=== PATIENT | female | born 1950 | race Caucasian/White ===

== ENCOUNTER 2017-01-09 18:10 | Emergency (ER) | payer OTHER, MEDICARE ==
[~2017-01-09] VITALS: Ht 152.4 cm; Wt 63.5 kg
[~2017-01-09 18:10] MED LIST: ZOFRAN4 M1 SL
[2017-01-09 18:15] VITALS: BP 150/77
--- NOTE | 2017-01-09 18:33 | ED EYE COMPLAINT ---
History of Present Illness General Chief Complaint: General Adult Stated Complaint: ?PINK EYE, LUMP ON LT ARM Source: patient, family Exam Limitations: no limitations Vital Signs & Intake/Output Vital Signs & Intake/Output Vital Signs Date Time Temp Pulse Resp B/P B/P Pulse O2 O2 Flow FiO2 Mean Ox Delivery Rate 01/09 1815 98.4 69 15 150/77 98 Room Air Room Air Allergies Coded Allergies: MDX - Adhesive (Adhesive) (UNKNOWN REACTION TO ADHESIVE AND GLUE 01/09/17) MDX - Cefaclor (From Ceclor) (UNKNOWN 01/09/17) MDX - Erythromycin (UNKNOWN 01/09/17) MDX - Gatifloxacin (Gatifloxacin) (UNKNOWN 01/09/17) MDX - Levofloxacin (From Levaquin) (UNKNOWN 01/09/17) MDX - Nitrofurantoin (From Macrobid) (UNKNOWN 01/09/17) MDX - Penicillin (Penicillin) (UNKNOWN 01/09/17) MDX - Penicillin G (From Penicillin G Potassium) (UNKNOWN 01/09/17) MDX - SULFA (sulfonamide) (SULFA (sulfonamide)) (UNKNOWN 01/09/17) MDX - Tetracycline (Tetracycline) (UNKNOWN 01/09/17) MDX - Acetaminophen (From Tylenol) (PT STATES LOWERS HER B/P 01/09/17) Reconcile Medications Gentamicin Sulfate 0.3 % DROPS 1 GTT OPH 4 TIMES/DAY conjunctivits Ondansetron (Zofran Odt) 4 MG ODT 1 TAB SL Q8HR PRN NAUSEA Triage Note: PT TO ED FOR C/C OF LUMP ON L UPPER ARM FOR A MONTH S/P FALL, PAINFUL. ALSO HERE FOR ?PINK EYE SINCE SUNDAY WITH DRAINAGE, HAS BEEN USING OLD ANTIBIOTIC DROPS WITHOUT RELIEF. Triage Nurses Notes Reviewed? yes Onset: Abrupt Duration: week(s):, constant, continues in ED Timing: single episode today Injury Environment: home Severity: mild, moderate Severity Numbers: 6 No Modifying Factors: none Left Eye Associated Symptoms: burning, itching, sensitivity to light Right Eye Associated Symptoms: burning, itching, sensitivity to light LMP (ages 10-50): post menopausal : No Patient currently breastfeeds: No HPI: 66-year-old female with past medical history of seizure disorder, glaucoma, and CVA presents complaining of bilateral eye redness, irritation, burning and discharge for the past 2 days. She reports symptoms started in both eyes and gradually been worsening. She reports that when she wakes up in the morning her eyes are crusted shut. She reports thick white discharge. No changes in vision , eye pain, pain with eye movement. She reports that she had a similar situation last year that was treated with gentamicin drops. She has appointment with gentamicin drops that she had left over into her eye 3 times a day and it has been improving. Additionally patient is reporting pain and swelling in her left upper arm since a fall after a seizure one month ago. Patient reports that she has a seizure disorder and frequently will have seizures. One month ago she fell after a seizure landing on her left upper arm and left shoulder. Since then she has had pain in the left upper arm and shoulder that is worse with movement. She feels as though swelling and pain have decreased since the initial fall but have not gone away completely. It is rated as a 6 out of 10. She does not take any medicine for the pain. She denies any head injury or loss of consciousness. She does not take blood thinners. Patient seizure disorders managed by her primary care doctor who is aware that she had a seizure. She has not been evaluated for the arm pain. (LILY MÉNDEZ PA-C) Past History Travel History Traveled to [place] past 21 day No Medical History Any Pertinent Medical History? see below for history Neurological: CVA, seizure, NEUROPATHY EENT: glaucoma, macular degeneration, LEGALLY BLIND Cardiovascular: angina, myocardial infarction, TRIPLE BYPASS 8 STENTS Respiratory: asthma Gastrointestinal: GERD, irritable bowel syndrome Renal: nephrolithiasis Musculoskeletal: osteoporosis Psychiatric: anxiety Endocrine: IDDM Blood Disorders: BLOOD CLOTS? Cancer(s): NONE COMPUTER SYSTEMS INFORMATION DIRECTOR/Reproductive: NONE History of MRSA: No History of VRE: No History of CDIFF: No Pneumonia Vaccine: 12/21/10 Influenza Vaccine: 04/30/12 Surgical History Surgical History: cholecystectomy, hernia repair-umbilical, hysterectomy Psychosocial History Who do you live with Spouse Services at Home None What is your primary language Yi Tobacco Use: Quit >30 days ago ETOH Use: denies use Illicit Drug Use: denies illicit drug use Family History Hx Contributory? No (LILY MÉNDEZ PA-C) Review of Systems Review of Systems Constitutional: Reports: no symptoms. Eyes: Reports: see HPI, drainage, inflammation, photophobia. Denies: blindness, blurred vision, decreased acuity, pain, vision change, contact lenses. Ear: Reports: no symptoms. Nose: Reports: no symptoms. Mouth: Reports: no symptoms. Throat: Reports: no symptoms. Respiratory: Reports: no symptoms. Cardiovascular: Reports: no symptoms. GI: Reports: no symptoms. Genitourinary: Reports: no symptoms. Musculoskeletal: Reports: see HPI, joint pain, muscle pain. Skin: Reports: no symptoms. Neurological/Psychological: Reports: no symptoms. Hematologic/Endocrine: Reports: no symptoms. Immunologic/Allergic: Reports: no symptoms. All Other Systems: Reviewed and Negative (DEV TURCIOS,LILY) Physical Exam General Appearance: well developed/nourished, no apparent distress, alert, awake General Inspection: normal inspection Eyelid: normal inspection, everted for exam Conjunctiva/Sclera: exudate, injected Cornea: normal inspection EOM: intact Pupil: normal accommodation, normal pupil, PERRL Anterior Chamber: normal inspection General Inspection: normal inspection Eyelid: normal inspection, everted for exam Conjunctiva/Sclera: exudate, injected Cornea: normal inspection EOM: intact Pupil: normal accommodation Anterior Chamber: normal inspection Posterior Segments: normal funduscopic Physical Exam Head: atraumatic, normal appearance Ears: Bilateral: canal normal, Tympanic normal. Nose: normal inspection Mouth/Throat: normal mouth inspection, pharynx normal Neck: normal inspection, supple, full range of motion Cardiovascular/Respiratory: normal breath sounds, normal peripheral pulses, regular rate/rhythm, no respiratory distress Neurologic/Psych: no motor/sensory deficits, awake, alert, oriented x 3, normal gait, normal mood/affect Skin: intact, normal color Comments: There is pain with palpation of the left posterior upper arm. There is a 3 cm diameter area of induration on the left posterior upper arm. There is no focal fluctuant areas, discharge or erythema. The area is tender to palpation. Full range of motion of the left elbow is intact. Range of motion of left shoulder is decreased due to pain. No point tenderness. Neurovascular supply at the left upper extremity is intact. All other extremities have normal inspection and normal range of motion. (DEV TURCIOS,LILY) Progress Differential Diagnosis: corneal abrasion, corneal foreign body, conjunctivitis, detached retina, glaucoma, globe rupture, retinal art./v. occlusion Plan of Care: Orders Procedure Date/time Status Durable Medical Equipment 01/09 2002 Active There is pain and swelling in the left distal humerus. Also pain with range of motion of the left shoulder. Patient will have x-rays of the left humerus and left shoulder rule out fracture. I symptoms are more consistent with conjunctivitis versus acute angle closure glaucoma. There is no pain with palpation of the eyes. Full range of motion is intact bilaterally. No changes in visual acuity. Exam of the cornea is within normal limits. The eyes are nontender to palpation and are soft. 8 PM: X-rays of the left humerus and shoulder are within normal limits. Advised patient to apply heating pad to the area. She'll be given a shoulder immobilizer. Advised to follow-up with her primary care doctor and her eye doctor this coming week. She'll be given a refill of gentamicin drops continue to use them as directed for full course. Review of results of today's visit with patient. Patient is nontoxic-appearing at discharge and agrees with the plan. Case discussed with Dr. Martinez she agrees the plan. (LILY MÉNDEZ PA-C) Diagnostic Imaging: Viewed by Me: Radiology Read. Comments: PATIENT: JANET MARCELO PRESENT AGE: 66 PATIENT ACCOUNT NO: [id number] : 49 LOCATION: [facility] ORDERING PHYSICIAN: LILY MÉNDEZ PA-C SERVICE DATE: 01/09/17 EXAM TYPE: RAD - XRY-HUMERUS, LEFT; XRY-SHOULDER COMPLETE-LEFT Indication: Pain, fall EXAMINATION: Left humerus, left shoulder. Left humerus 2 views. FINDINGS: No evidence for fracture. Left shoulder 4 views submitted. FINDINGS: No acute fracture or dislocation. No suspicious periosteal change. Some probable acromial lipping. IMPRESSION: No acute finding left shoulder, left humerus. No suspicious periosteal change. DICTATED BY: ESTELA HDZ MD DATE/TIME DICTATED:01/09/171923 APPRENTICE MACHINIST OUTSIDE:KAT DATE/TIME TRANSCRIBED:01/09/171923 CONFIDENTIAL, DO NOT COPY WITHOUT APPROPRIATE AUTHORIZATION. <Electronically signed in Other Vendor System> SIGNED BY: ESTELA HDZ MD 01/09/171929 (LILY MÉNDEZ PA-C) Departure Departure Disposition: HOME OR SELF CARE Condition: Stable Clinical Impression Primary Impression: Conjunctivitis Qualifiers: Conjunctivitis type: acute Acute conjunctivitis type: bacterial Laterality: bilateral Qualified Code: H10.33 - Unspecified acute conjunctivitis, bilateral Secondary Impressions: Left upper arm pain Referrals: AMANDA PINO MD (PCP/Family) Additional Instructions: Rest, avoid excessive physical activity heavy lifting or moving of the left shoulder. Wear shoulder immobilizer. Apply warm compresses to the upper arm several times a day for 15-20 minutes. Make a follow-up with her primary care doctor this coming week. Continue to apply gentamicin drops as directed for the full course. Make follow up appt with your eye doctor. Return to the emergency department with worsening pain in your eyes, changes in vision, fevers, redness around the outside of your eye or any other concerns. Please go over all results of today's visit with your primary care doctor. Contact your primary care doctor to let them know you were here in the emergency room. There may be nonspecific findings which may not be related to your visit today here in the emergency room but may require further evaluation and chronic monitoring by your primary care doctor. If you had a laceration today the chance of foreign body always remains. You should follow-up with your primary care doctor for recheck in 3-5 days for a wound check. If you had an x-ray done there is a chance that a fracture could have been missed on initial read and you should follow-up with your primary care doctor for repeat x-rays if symptoms persist. If your blood pressure was elevated here in the emergency room please have rechecked by her primary care doctor within the next 48 hours by your primary care doctor. If you were prescribed a narcotic here in the emergency room or any type of controlled substances you're not allowed to drive while taking this medication or operate any type of heavy machinery. Narcotics can make you feel lightheaded dizziness nausea and can cause constipation. You may need to case picker a stool softener. Thank you for choosing [facility] emergency room. Please return to the emergency room immediately if you have any other concerns worsening of symptoms. Departure Forms: Customer Survey General Discharge Information Prescriptions: Current Visit Scripts Gentamicin Sulfate 1 GTT OPH 4 TIMES/DAY #5 ML (LILY MÉNDEZ PA-C) PA/INNER DIAMETER GRINDER TOOL Co-Sign Statement Statement: ED Attending supervision documentation- [X] I saw and evaluated the patient. I have also reviewed all the pertinent lab results and diagnostic results. I agree with the findings and the plan of care as documented in the SPENCER's/INNER DIAMETER GRINDER TOOL's documentation. [x] I have reviewed the ED Record and agree with the PA's/INNER DIAMETER GR[employer]ER TOOL's documentation. [] Additions or exceptions (if any) to the PAs/INNER DIAMETER GRINDER TOOL's note and plan are summarized below: [] (ALYSSA COLEMAN,ANIKA)
--- NOTE | 2017-01-09 19:30 | RADIOLOGY REPORT ---
Indication: Pain, fall EXAMINATION: Left humerus, left shoulder. Left humerus 2 views. FINDINGS: No evidence for fracture. Left shoulder 4 views submitted. FINDINGS: No acute fracture or dislocation. No suspicious periosteal change. Some probable acromial lipping. IMPRESSION: No acute finding left shoulder, left humerus. No suspicious periosteal change.
[2017-01-09] MEDS ORDERED: GENTAMICIN SULFA5 ML OPH (20:01)
== END 2017-01-09 20:19 ==
LOC: ERH 18:10
DX: H10.9 Unspecified conjunctivitis (principal); M79.622 Pain in left upper arm
CPT/HCPCS: 73030-LT; 73060-LT